=== PATIENT | female | born 1995 | race Caucasian/White ===

== ENCOUNTER 2017-05-18 06:17 | Day surgery (SDC) | payer BC ==
[~2017-05-18] VITALS: Ht 152.4 cm; Wt 68.9 kg
[~2017-05-18 06:17] MED LIST: MONO-LINYAH1 EACH PO; NEXIUM40 MG PO; XANAX0.5 MG PO
[2017-05-18 06:50] VITALS: BP 130/87
[2017-05-18] MEDS ORDERED: HYDROCODON-ACE1 EAC7 PO (09:04)
[2017-05-18 09:43] VITALS: BP 108/73
[2017-05-18 10:25] VITALS: BP 111/78
== END 2017-05-18 10:35 | disposition home or self-care (01) ==
LOC: SDC 06:17 → EDSTATUS 14:46 → SDC 14:48
PROVIDERS: Surgery
PROC: 0HBU0ZX Excision of Left Breast, Open Approach, Diagnostic (ICD-10-PCS; principal; 2017-05-18)
DX: D24.2 Benign neoplasm of left breast (principal); Z80.49 Family history of malignant neoplasm of other genital organs
CPT/HCPCS: 81025; 88307; J0690; J1100; J1170; J1885; J2250; J2405; S0020